=== PATIENT | male | born 1985 | race Two or more races ===

== ENCOUNTER 2020-01-06 20:57 | Emergency (ER) | payer MEDICAID ==
[~2020-01-06] VITALS: Ht 177.8 cm; Wt 104.3 kg
[2020-01-06 21:10] VITALS: BP 123/52
--- NOTE | 2020-01-06 21:19 | NUR ---
PT AAOX4,AMBULATORY. BIBS. C/O UPPER AND LOWER BACK PAIN PROGRESIVELY WORST. PHYSICAL WEAKNESS. PT STATED [facility]
--- NOTE | 2020-01-06 21:47 | NUR ---
XRAY AT BEDSIDE
== END 2020-01-06 22:27 | disposition home or self-care (01) ==
LOC: ER 20:57
DX: S39.012A Strain of muscle, fascia and tendon of lower back, initial encounter (principal); X58.XXXA Exposure to other specified factors, initial encounter; Y93.89 Activity, other specified; Y92.89 Other specified places as the place of occurrence of the external cause; Y99.8 Other external cause status
CPT/HCPCS: 71045-TC; 74018